=== PATIENT | male | born 1965 | race Caucasian/White ===

== ENCOUNTER → 2016-11-03 | Outpatient (CLI) | payer OTHER ==
[~2016-11-03] MED LIST: GADOBUTROL 10 ML VIAL IVP ONE
== END ==
LOC: FIMAGING 06:55
PROVIDERS: ATTEND Otolaryngology
DX: H90.41 Sensorineural hearing loss, unilateral, right ear, with unrestricted hearing on the contralateral side (principal); I10 Essential (primary) hypertension; E78.5 Hyperlipidemia, unspecified
CPT/HCPCS: A9585

== ENCOUNTER 2017-07-04 11:36 | Emergency (ER) | payer OTHER ==
--- NOTE | 2017-07-04 12:09 | EDPHY ---
H & P Stated Complaint: cp on walk thi morning at 0630/off htn meds for month Time Seen by Provider: 07/04/17 12:09 - Personal History Current Tetanus/Diphtheria Vaccine: No - Medical/Surgical History Hx Asthma: No Hx Chronic Respiratory Disease: No Hx Diabetes: No Hx Cardiac Disease: No Hx Renal Disease: No Hx Cirrhosis: No Hx Alcoholism: No Hx HIV/AIDS: No Hx Splenectomy or Spleen Trauma: No Other PMH: htn - Social History Smoking Status: Never smoked Constitutional: Initial Vital Signs Temperature (C) 37 C 07/04/17 11:43 Heart Rate 73 07/04/17 11:43 Respiratory Rate 18 07/04/17 11:43 Blood Pressure 182/104 H 07/04/17 11:43 O2 Sat (%) 97 07/04/17 11:43 O2 Delivery Mode Room Air Allergies/Adverse Reactions: No Known Allergies Allergy (Unverified 07/04/17 11:43) Home Medications: Medication Instructions Recorded Cholesterol Med 07/04/17 Medical Decision Making - Diagnostics Imaging Results: Imaging Impressions Chest X-Ray 07/04/17 12:16 Impression: 1. No active cardiopulmonary disease. 2. 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 Imaging: I viewed and interpreted images myself ED Course/Re-evaluation: CHIEF COMPLAINT: Chest pain HISTORY OF PRESENT ILLNESS: 51-year-old healthy gentleman who states that he took his usual 3-4 mi walk this morning which she does approximately 4 times a week. He woke up from sleep feeling absolutely fine. Right when he started walking before he was very far into it and in fact just walking out from his house he developed sharp pleuritic like chest pain in his left lower chest but his nipple. It seemed to radiate laterally a bit. He denies shortness of breath. He denies any other pressure or tightness in his chest. He denies any nausea vomiting. He denies any lightheadedness or dizziness. He has never had symptoms like this before. He is generally very active. He denies ever having any cardiovascular workup however he does take an antihypertensive and a statin drug. He does not take aspirin. He still has the pain while at rest but it is much exacerbated by taking a deep breath. REVIEW OF SYSTEMS: A 10 point review of systems was performed and is negative with the exception of the elements mentioned in the history of present illness. PHYSICAL EXAM: HR, BP, O2 Sat, RR. Temp noted General Appearance: Alert, well hydrated, appropriate, and non-toxic appearing. Head: Atraumatic without scalp tenderness or obvious injury Eyes: Pupils equal, round, reactive to light and accommodation, EOMI, no trauma , no injection. Ears: Clear bilaterally, no perforation, normal landmarks Nose: Atraumatic, no rhinorrhea, clear. Throat: There is no erythema or exudates, no lesions, normal tonsils, mucus membranes moist. Neck: Supple, 2+ carotid upstroke, nontender, no lymphadenopathy. Respiratory: No retractions, no distress, no wheezes, and no accessory muscle use. Lungs are clear to auscultation bilaterally. Cardiovascular: Regular rate and rhythm, no murmurs, rubs, or gallops. Bilateral carotid, radial, dorsalis pedis, and posterior tibial pulses intact. Good capillary refill all extremities. Gastrointestinal: Abdomen is soft, nontender, non-distended, no masses, no rebound, no guarding, no peritoneal signs. Musculoskeletal: I can't reproduce this patient's chest pain by pushing over his left lateral ribs exactly reproducing the pain that he feels while at rest and then the exacerbation of pain when he takes a deep breath. Normal active ROM of all extremities, atraumatic. Neurological: Alert, appropriate, and interactive. The patient has normal DTRs and non-focal cranial nerves, motor, sensory, and cerebellar exam. Skin: No rashes, good turgor, no nodules on palpation. Past medical history: Hypertension hypercholesterolemia Past surgical history: Noncontributory Family history: No cardiac history mother father brother sisters Social history: , employed, does not abuse tobacco drugs or alcohol DIAGNOSTICS/PROCEDURES/CRITICAL CARE TIME: The 12 lead EKG was interpreted by myself. See hard copy and/or "tracemaster" electronic copy for interpretation. Sinus mechanism, no ischemia, DIFFERENTIAL DIAGNOSIS: The differential diagnosis for the patient's chest pain included but was not limited to myocardial ischemia, pulmonary embolus, chest wall pain, pleural inflammation, and pulmonary infectious causes. MEDICAL DECISION MAKING: This patient is sharp pleuritic chest pain which seems to be associated with him exercising this morning. He denies any chest pressure, denies shortness of breath, denies nausea vomiting, denies any other symptoms which could be construed as cardiac. He has a normal EKG. His symptoms have not been relieved with rest and factor just as bad when he takes a deep breath at rest as when he was walking. He completed his entire walk without difficulty. Laboratory studies are pending. This patient's chest pain is completely reproducible when I push on his chest wall. I believe this is a costochondritis or some sort of pleurisy and not cardiac. Spoke with PA for cardiology. Patient will have an outpatient stress test on Sunday. Plan to d/c home in good condition. Follow up and return precautions discussed. The patient is comfortable with this plan. 14:00 Troponin pending. There is reportedly an equipment malfunction in the laboratory this afternoon. I will discharge the patient as soon as I receive this result. 14:20 Troponin negative. Plan to discharge as above. - Data Points Laboratory Results: Laboratory Results 07/04/17 12:22 07/04/17 12:22 07/04/17 07/04/17 07/04/17 12:22 12:22 12:22 WBC 7.48 10^3/uL 10^3/uL (3.80-9.50) RBC 5.25 10^6/uL 10^6/uL (4.40-6.38) Hgb 17.9 g/dL H g/dL (13.7-17.5) Hct 49.3 % % (40.0-51.0) MCV 93.9 fL fL (81.5-99.8) MCH 34.1 pg pg (27.9-34.1) MCHC 36.3 g/dL g/dL (32.4-36.7) RDW 11.7 % % (11.5-15.2) Plt Count 151 10^3/uL 10^3/uL (150-400) MPV 10.1 fL fL (8.7-11.7) Neut % (Auto) 73.8 % % (39.3-74.2) Lymph % (Auto) 16.4 % % (15.0-45.0) [place] % (Auto) 8.2 % % (4.5-13.0) Eos % (Auto) 0.9 % % (0.6-7.6) Baso % (Auto) 0.4 % % (0.3-1.7) Nucleat RBC Rel Count 0.0 % % (0.0-0.2) Absolute Neuts (auto) 5.52 10^3/uL 10^3/uL (1.70-6.50) Absolute Lymphs (auto) 1.23 10^3/uL 10^3/uL (1.00-3.00) Absolute Monos (auto) 0.61 10^3/uL 10^3/uL (0.30-0.80) Absolute Eos (auto) 0.07 10^3/uL 10^3/uL (0.03-0.40) Absolute Basos (auto) 0.03 10^3/uL 10^3/uL (0.02-0.10) Absolute Nucleated RBC 0.00 10^3/uL 10^3/uL (0-0.01) Immature Gran % 0.3 % % (0.0-1.1) Immature Gran # 0.02 10^3/uL 10^3/uL (0.00-0.10) D-Dimer 0.34 ug/mLFEU ug/mLFEU (0.00-0.50) Sodium 140 mEq/L mEq/L (135-145) Potassium 4.2 mEq/L mEq/L (3.3-5.0) Chloride 105 mEq/L mEq/L (97-110) Carbon Dioxide 20 mEq/l L mEq/l (22-31) Anion Gap 15 mEq/L mEq/L (8-16) BUN 13 mg/dL mg/dL (7-23) Creatinine 1.2 mg/dL mg/dL (0.7-1.3) Estimated GFR > 60 Glucose 103 mg/dL H mg/dL (70-100) Calcium 9.2 mg/dL mg/dL (8.5-10.4) Troponin I < 0.012 ng/mL ng/mL (0.000-0.034) NT-Pro-B Natriuret Pep 35 pg/mL pg/mL (0-125) Medications Given: Discontinued Medications Aspirin (Aspirin) 324 mg PO EDNOW ONE Stop: 07/04/17 12:17 Last Admin: 07/04/17 12:39 Dose: 324 mg Departure - Departure Disposition: Home, Routine, Self-Care Clinical Impression: Chest pain, pleuritic Chest pain Qualifiers: Chest pain type: other chest pain Qualified Code(s): R07.89 - Other chest pain Condition: Good Instructions: Chest Pain (ED) Additional Instructions: Follow up with a roofer applicator for further testing. You are scheduled for a stress test at [facility] on Sunday, 07/06 at 3:30pm. Please arrive 15 minutes early. Do not eat any food for two hours prior to this appointment. Follow-up with your primary doctor within 2-3 days. Return to the Emergency Department for fever, chest pain, shortness of breath, increasing pain or other worsening of condition. Referrals: Mihir Dueñas MD [Primary Care Provider] - As per Instructions Obie Woodard MD [Medical Doctor] - As per Instructions CARDIOLOGY,[facility] [Edm Groups for Call Sched] - As per Instructions Report Scribed for: Ernie Chery Report Scribed by: Priyanka Cortez Date of Report: 07/04/17 Time of Report: 14:17
--- NOTE | 2017-07-04 12:09 | CPEKG ---
Heart Rate: 70 RR Interval: 857 P-R Interval: 152 QRSD Interval: 88 QT Interval: 416 QTC Interval: 449 P [place]: 58 QRS [place]: 12 T Wave [place]: 24 EKG Severity - NORMAL ECG - EKG Impression: SINUS RHYTHM Electronically Signed By: Ernie Chery 04-Jul-2017 13:51:28
[2017-07-04] MEDS ORDERED: ASPIRIN 81 MG CHEWABLE TAB PO ONE (12:16)
[2017-07-04 12:33] LABS: PLATELET COUNT 151 10^3/uL (150-400)
[2017-07-04 14:26] VITALS: BP 173/100
== END 2017-07-04 14:27 | disposition home or self-care (01) ==
DX: R07.81 Pleurodynia (principal); R07.89 Other chest pain; I10 Essential (primary) hypertension